=== PATIENT | female | born 1995 | race Caucasian/White ===

== ENCOUNTER 2018-01-01 20:30 | Emergency (ER) | payer OTHER ==
[2018-01-01] MEDS ORDERED: MAG HYDROX/AL HYDROX/SIMETH 30 ML UDC PO STA (20:54)
[2018-01-01] MEDS ORDERED: LIDOCAINE VISCOUS 2% 15 ML UDC MM STA (20:54)
[2018-01-01] MEDS ORDERED: FAMOTIDINE 20 MG TABLET PO STA (20:54)
[2018-01-01 21:22] LABS: BASOPHILS % (AUTO) 0.4 %; EOSINOPHILS # (AUTO) 0.2 10^3/uL (0.0-0.7); EOSINOPHILS % (AUTO) 3.6 %; HGB - HEMOGLOBIN 13.1 g/dL (12.0-16.0); LYMPHOCYTES # (AUTO) 1.6 10^3/uL (1.5-3.5); MEAN CORPUSCULAR HEMOGLOBIN 29.8 pg (27.0-31.0); MEAN CORPUSCULAR HGB CONC 33.5 g/dL (32.0-36.0); MEAN CORPUSCULAR VOLUME 88.9 fL (81.0-99.0); MEAN PLATELET VOLUME 7.3 fL (7.9-10.8); MONOCYTES # (AUTO) 0.4 10^3/uL (0.0-1.0); MONOCYTES % (AUTO) 7.9 %; NEUTROPHILS % (AUTO) 58.1 %; PLT - PLATELET COUNT 206 10^3/uL (130-450); RED BLOOD COUNT 4.39 10^6/uL (4.20-5.40); RED CELL DISTRIBUTION WIDTH 12.7 % (12.0-15.0); WHITE BLOOD COUNT 5.2 x10^3/uL (4.8-10.8)
[2018-01-01 21:38] LABS: ALBUMIN 3.9 g/dL (3.2-5.5); ALBUMIN/GLOBULIN RATIO 1.5 (1.0-2.2); BILIRUBIN,TOTAL 0.5 mg/dL (0.2-1.0); CALCIUM 8.7 mg/dL (8.5-10.3); CREATININE 0.7 mg/dL (0.4-1.0); TOTAL PROTEIN 6.5 g/dL (6.7-8.2)
--- NOTE | 2018-01-01 21:53 | ED Physician Documentation ---
PD HPI ABD PAIN - Stated complaint Stated Complaint: L SIDE PX - Chief complaint Chief Complaint: Abd Pain - History obtained from History obtained from: Patient, Friend - History of Present Illness Timing - onset: Today Timing - details: Gradual onset, Still present Quality: Aching, Sharp Location: Epigastric Worsened by: Eating, Palpation Associated symptoms: Nausea. No: Fever, Vomiting, Hematemesis, Diarrhea, Constipation Similar symptoms before: Has not had sx before Recently seen: Not recently seen - Additional information Additional information: Patient is a 22 year old female with no significant past medical history who is presenting to the emergency department for epigastric pain. patient states that the symptoms started yesterday. patient recently turned 22 and did go out to celebrate. Review of Systems Ten Systems: 10 systems reviewed and negative Constitutional: denies: Fever, Chills Cardiac: reports: Chest pain / pressure GI: reports: Abdominal Pain, Nausea. denies: Vomiting, Constipation, Diarrhea : denies: Dysuria, Frequency PD PAST MEDICAL HISTORY - Past Medical History Past Medical History: No - Past Surgical History Past Surgical History: No - Present Medications Home Medications: Ambulatory Orders Medication Instructions Recorded Confirmed Ondansetron Odt [Zofran] 4 mg TL Q6H PRN #14 tablet 01/01/18 - Allergies Allergies/Adverse Reactions: Allergies Allergy/AdvReac Type Severity Reaction Status Date / Time No Known Drug Allergies Allergy Verified 01/01/18 20:42 - Social History Does the pt smoke?: No Smoking Status: Never smoker Does the pt drink ETOH?: Yes Does the pt have substance abuse?: No - Immunizations Immunizations are current?: Yes PD ED PE NORMAL - Vitals Vital signs reviewed: Yes - General General: Alert and oriented X 3 - HEENT HEENT: Atraumatic - Cardiac Cardiac: RRR - Respiratory Respiratory: No respiratory distress - Derm Derm: Normal color - Extremities Extremities: No deformity - Neuro Neuro: Alert and oriented X 3 Eye Opening: Spontaneous Motor: Obeys Commands Verbal: Oriented GCS Score: 15 PD ED PE EXPANDED - Abdomen Abdomen: Tender to palpation, Epigastric. No: Rebound, Guarding Results - Vitals Vitals: Vital Signs - 24 hr 01/01/18 20:39 Temperature 36.2 C L Heart Rate 81 Respiratory 17 Rate Blood Pressure 117/64 O2 Saturation 100 Oxygen O2 Source Room air - EKG (time done) 87 Rate: Rate (enter#) (87) Rhythm: Abnormal P waves [place]: Normal Intervals: Normal SD QRS: Normal Ischemia: Normal ST segments Compare to prior EKG: Old EKG unavailable - Labs Labs: Laboratory Tests 01/01/18 01/01/18 01/01/18 21:10 21:10 21:10 WBC 5.2 RBC 4.39 Hgb 13.1 Hct 39.0 MCV 88.9 MCH 29.8 MCHC 33.5 RDW 12.7 Plt Count 206 MPV 7.3 L Neut # (Auto) 3.0 Lymph # (Auto) 1.6 [place] # (Auto) 0.4 Eos # (Auto) 0.2 Baso # (Auto) 0.0 Absolute Nucleated RBC 0.01 Nucleated RBC % 0.1 Sodium 134 L Potassium 3.1 L Chloride 101 Carbon Dioxide 25 Anion Gap 8.0 BUN 8 Creatinine 0.7 Estimated GFR (MDRD) 106 Glucose 126 H Calcium 8.7 Total Bilirubin 0.5 AST 23 ALT 17 Alkaline Phosphatase 55 Troponin I < 0.04 Total Protein 6.5 L Albumin 3.9 Globulin 2.6 Albumin/Globulin Ratio 1.5 Lipase 33 PD MEDICAL DECISION MAKING - ED course Complexity details: reviewed old records, reviewed results, re-evaluated patient, considered differential, d/w patient ED course: Patient was seen and examined at bedside. patient was well appearing and in no acute distress. ekg was performed and showed no acute ischemic changes. labs were drawn and patient was treated with a gi cocktail with good relief. patient's diagnostics were within normal limits. patient required no further work up and was stable for discharge with outpatient follow up. - Sepsis Event Vital Signs: Vital Signs - 24 hr 01/01/18 20:39 Temperature 36.2 C L Heart Rate 81 Respiratory 17 Rate Blood Pressure 117/64 O2 Saturation 100 Oxygen O2 Source Room air Departure - Departure Disposition: 01 Home, Self Care Clinical Impression: Abdominal pain Condition: Good Instructions: Abdominal Pain Follow-Up: JAIRON CHAVEZ MD [Primary Care Provider] - As Needed Prescriptions: Ondansetron Odt [Zofran] 4 mg TL Q6H PRN #14 tablet PRN Reason: Nausea / Vomiting Comments: Your diagnostics today were within normal limits. Your symptoms are likely sec ondary to your diet over the last few days. You can take maalox as needed for pain and zofran for nausea. Follow up with your doctor if your symptoms persist. You may return to the emergency department at any time for new, worsening or uncontrollable symptoms. Discharge Date/Time: 01/01/18 22:03
[2018-01-01 22:04] VITALS: BP 125/74
== END 2018-01-01 22:03 | disposition home or self-care (01) ==
LOC: ED 20:30
DX: R10.13 Epigastric pain (principal)
CPT/HCPCS: 36415; 80053; 83690; 84484; 85025; 93005; 99283; A9270

== ENCOUNTER 2019-01-31 19:58 | Emergency (ER) | payer OTHER ==
[2019-01-31 21:34] LABS: BASOPHILS % (AUTO) 0.3 %; EOSINOPHILS # (AUTO) 0.1 10^3/uL (0.0-0.7); EOSINOPHILS % (AUTO) 0.8 %; HGB - HEMOGLOBIN 13.3 g/dL (12.0-16.0); LYMPHOCYTES # (AUTO) 0.3 10^3/uL (1.5-3.5); LYMPHOCYTES % (AUTO) 4.3 %; MEAN CORPUSCULAR HEMOGLOBIN 28.9 pg (27.0-31.0); MEAN CORPUSCULAR HGB CONC 32.2 g/dL (32.0-36.0); MEAN CORPUSCULAR VOLUME 89.6 fL (81.0-99.0); MEAN PLATELET VOLUME 9.2 fL (7.9-10.8); MONOCYTES # (AUTO) 0.4 10^3/uL (0.0-1.0); MONOCYTES % (AUTO) 4.5 %; NEUTROPHILS # (AUTO) 7.2 10^3/uL (1.5-6.6); NEUTROPHILS % (AUTO) 89.8 %; PLT - PLATELET COUNT 213 10^3/uL (130-450); RED BLOOD COUNT 4.61 10^6/uL (4.20-5.40); RED CELL DISTRIBUTION WIDTH 12.1 % (12.0-15.0)
[2019-01-31 21:47] LABS: ALBUMIN 4.4 g/dL (3.2-5.5); ALBUMIN/GLOBULIN RATIO 1.3 (1.0-2.2); BILIRUBIN,TOTAL 0.6 mg/dL (0.2-1.0); CALCIUM 9.2 mg/dL (8.5-10.3); CREATININE 0.7 mg/dL (0.4-1.0); TOTAL PROTEIN 7.8 g/dL (6.7-8.2)
--- NOTE | 2019-01-31 23:09 | ED Physician Documentation ---
History of Present Illness - Stated complaint Stated Complaint: FATIGUE/DIZZY - Chief complaint Chief Complaint: Neuro - History obtained from History obtained from: Patient - History of Present Illness Timing: How many days ago (2) Pain level now: 0 Improved by: rest Worsened by: ambulation, activity, exertion - Additonal information Additional information: c/o fatigue, nausea/vomiting, body aches, chills/diaphoresis x 2 days. She is tolerating PO (n/v is intermittent) Review of Systems Constitutional: reports: Fever (subjective (has not taken temperature at home but chills/diaphoresis)), Chills, Myalgias, Fatigue, Sweats Ears: reports: Reviewed and negative Nose: reports: Reviewed and negative Throat: denies: Sore throat Cardiac: reports: Reviewed and negative Respiratory: reports: Reviewed and negative GI: reports: Nausea, Vomiting. denies: Abdominal Pain, Constipation, Diarrhea : denies: Dysuria, Frequency, Now EGA PD PAST MEDICAL HISTORY - Past Medical History Past Medical History: No - Past Surgical History Past Surgical History: No - Present Medications Home Medications: Ambulatory Orders Medication Instructions Recorded Confirmed No Known Home Medications 01/31/19 01/31/19 - Allergies Allergies/Adverse Reactions: Allergies Allergy/AdvReac Type Severity Reaction Status Date / Time No Known Drug Allergies Allergy Verified 01/31/19 20:32 - Living Situation Living Arrangement: reports: At home - Social History Does the pt smoke?: No Smoking Status: Never smoker Does the pt drink ETOH?: Yes Does the pt have substance abuse?: No - Immunizations Immunizations are current?: Yes PD ED PE NORMAL - Vitals Vital signs reviewed: Yes - General General: Alert and oriented X 3, No acute distress, Well developed/nourished - HEENT HEENT: Moist mucous membranes, Pharynx benign - Neck Neck: Supple, no meningeal sign - Cardiac Cardiac: RRR, No murmur, No gallop, No rub - Respiratory Respiratory: No respiratory distress, Clear bilaterally - Abdomen Abdomen: Soft, Non tender - Derm Derm: Normal color, Warm and dry Results - Vitals Vitals: Oxygen O2 Source Room air - EKG (time done) No standard instances Rate: Rate (enter#) (105), Tachy Rhythm: NSR [place]: Normal Intervals: Normal ID QRS: Normal Ischemia: Normal ST segments, Non specific changes (flat/inverted T III, aVF) - Labs Labs: Laboratory Tests 01/31/19 01/31/19 01/31/19 21:30 21:30 21:30 WBC 8.0 RBC 4.61 Hgb 13.3 Hct 41.3 MCV 89.6 MCH 28.9 MCHC 32.2 RDW 12.1 Plt Count 213 MPV 9.2 Neut # (Auto) 7.2 H Lymph # (Auto) 0.3 L [place] # (Auto) 0.4 Eos # (Auto) 0.1 Baso # (Auto) 0.0 Absolute Nucleated RBC 0.00 Nucleated RBC % 0.0 Sodium 137 Potassium 3.7 Chloride 102 Carbon Dioxide 25 Anion Gap 10.0 BUN 10 Creatinine 0.7 Estimated GFR (MDRD) 105 Glucose 106 H Calcium 9.2 Total Bilirubin 0.6 AST 27 ALT 33 Alkaline Phosphatase 59 Total Protein 7.8 Albumin 4.4 Globulin 3.4 Albumin/Globulin Ratio 1.3 Lipase 29 Ur Specific [place] 1.015 Urine HCG, Qual NEGATIVE PD MEDICAL DECISION MAKING - ED course Complexity details: reviewed results, re-evaluated patient, considered differential, d/w patient ED course: appears well-hydrated and despite intermittent nausea/vomiting, she describes good PO intake (decreased appetite but she says she has been pushing herself to drink fluids). declines antinauseants. Results of tests d/w patient. She is comfortable with d/c but says she is having difficulty sleeping due to symptoms. We discussed one-time dose of lorazepam which she agrees with Departure - Departure Disposition: 01 Home, Self Care Clinical Impression: Viral syndrome Condition: Good Instructions: ED Viral Syndrome Follow-Up: JAIRON CHAVEZ MD [Primary Care Provider] - Within 3 Days Forms: Activity restrictions Discharge Date/Time: 01/31/19 23:57
[2019-01-31] MEDS ORDERED: LORazepam 0.5 MG TABLET PO STA (23:28)
[2019-01-31 23:43] LABS: HCG UR QUAL NEGATIVE
[2019-01-31 23:58] VITALS: BP 151/89
[2019-02-01] MEDS ORDERED: LORazepam 0.5 MG TABLET ONE (00:07)
== END 2019-01-31 23:57 | disposition home or self-care (01) ==
LOC: ED 19:58
DX: B34.9 Viral infection, unspecified (principal); R00.0 Tachycardia, unspecified
CPT/HCPCS: 36415; 80053; 81025; 83690; 85025; 93005; 99282; 99284